=== PATIENT | male | born 1970 | race Caucasian/White ===

== ENCOUNTER → 2017-08-26 13:30 | Outpatient (REF) | payer MEDICARE, OTHER, SELFPAY ==
[2017-08-26 18:39] LABS: Basophils % 0.2 % (0.1-2.0); Eosinophils # 0.2 K/mm3 (0.0-0.4); Hematocrit 39.5 % (42.0-52.0); Hemoglobin 13.4 g/dL (14.1-18.0); Lymphocytes # 0.8 K/mm3 (0.7-4.5); Lymphocytes % 15.8 K/mm3 (10-50); Mean Corpuscular HGB Conc 33.9 g/dL (31.8-35.4); Mean Corpuscular Hemoglobin 30.7 pg (27.0-31.2); Mean Corpuscular Volume 90.5 fl (80-94); Mean Platelet Volume 9.6 fl (7.4-10.4); Monocytes # 0.3 K/mm3 (0.1-1.0); Monocytes % 6.3 % (1.7-9.3); Neutrophils # 3.9 K/mm3 (1.8-7.8); Neutrophils % 74.7 % (37.0-80.0); Platelet Count 171 K/mm3 (142-424); Red Blood Count 4.37 M/mm3 (4.60-6.20); Red Cell Distribution Width 13.7 % (11.5-17.5); White Blood Count 5.3 K/mm3 (4.8-10.8)
[2017-08-26 18:48] LABS: Alanine Aminotransferase 46 U/L (12-78); Albumin Level 3.9 gm/dL (3.4-5.0); Albumin/Globulin Ratio 1.2 (1.1-1.8); Alkaline Phosphatase 216 U/L (46-116); Anion Gap 12.7 mEq/L (5-15); Bilirubin,Total 0.2 mg/dL (0.2-1.0); Blood Urea Nitrogen 20 mg/dL (7-18); Calcium 8.8 mg/dL (8.5-10.1); Carbon Dioxide 28 mmol/L (21.0-32.0); Chloride 104 mmol/L (98-107); Creatinine,Serum 1.29 mg/dL (0.70-1.30); Estimated Glomerular Filt Rate 59 ml/min (>60); GFR (African American) 72 ML/MIN (>60); Globulin 3.2 gm/dl (1.3-3.2); Sodium 141 mmol/L (136-145); Total Protein,Serum 7.1 gm/dL (6.4-8.2)
[2017-08-26 19:00] LABS: Aspartate Amino Transferase 31 U/L (15-37); Potassium 3.7 mmoL/L (3.5-5.1)
[2017-08-26 19:07] LABS: Glucose 111 mg/dL (74-106)
[2017-08-28 15:46] LABS: Prolactin 25.7 ng/mL (4.0-15.2)
== END ==
LOC: LAB 13:30
PROVIDERS: Visit Provider Physician Assistant
DX: B02.9 Zoster without complications (principal); N64.3 Galactorrhea not associated with childbirth
CPT/HCPCS: 80053; 84146; 85025

== ENCOUNTER → 2017-08-28 12:40 | Outpatient (POV) | payer MEDICARE, OTHER, SELFPAY | PROVIDERS: Family Provider Emergency Medicine; PCP Emergency Medicine | DX: Z00.00 Encounter for general adult medical examination without abnormal findings (principal) ==

== ENCOUNTER → 2017-09-12 12:55 | Outpatient (CLI) | payer MEDICARE, OTHER, SELFPAY ==
--- NOTE | 2017-09-12 12:58 | MR_ITS ---
MR head/brain wo con HISTORY: The lack diarrhea, pituitary dysfunction, headache ITS.REASON: r/o pituitary adenoma ORDERING PHYSICIAN: Lauren Miller PATIENT AGE: 47 years No comparison available TECHNIQUE: Standard multiplanar multiecho sequences are performed without contrast. FINDINGS: No midline shift, mass effect, intracranial hemorrhage, or hydrocephalus. No evidence of acute infarction. There is normal grissom-white matter differentiation. The cerebellopontine angles, cerebellum, and brainstem are unremarkable. No obvious pituitary mass. Small microadenomas may not be visualized without contrast. No cerebellar tonsillar ectopia. The craniocervical junction has an unremarkable appearance. No mastoid effusion or sinus air-fluid level. Artifact is present in right ocular prosthesis. IMPRESSION: 1. Negative MRI of the brain without contrast. 2. No obvious pituitary mass. Small microadenomas may not be seen without contrast administration.
--- NOTE | 2017-09-12 14:05 | US_ITS ---
US breast LT complete No pertinent comparisons INDICATION: Left-sided nipple discharge ORDERING PHYSICIAN: Lauren Miller PATIENT AGE: 47 years TECHNIQUE: Standard images FINDINGS: No mass. No solid or cystic lesions. No obvious gynecomastia IMPRESSION: Negative left breast ultrasound BI-RADS Category: 1 Negative As clinically warranted (A letter has been sent to the patient regarding results of the study.)
== END ==
PROVIDERS: Family Provider Emergency Medicine; PCP Emergency Medicine; Visit Provider Nurse Practitioner Family
DX: N64.3 Galactorrhea not associated with childbirth (principal); E22.9 Hyperfunction of pituitary gland, unspecified; N64.52 Nipple discharge
CPT/HCPCS: 70551; 76641

== ENCOUNTER → 2018-05-12 08:43 | Outpatient (CLI) | payer MEDICARE, OTHER, SELFPAY ==
--- NOTE | 2018-05-12 08:45 | CT_ITS ---
CT sinus wo con CLINICAL INDICATION: Maxillary sinusitis ITS.REASON: Sinusitis ORDERING PHYSICIAN: Nick Canchola MD PATIENT AGE: 48 years COMPARISON: None TECHNIQUE:Axial images obtained with sagittal and coronal reformats. All CT scans at the facility use one or more dose reduction, viz: automated exposure control, ma/kV adjustment per patient size (including targeted exams where dose is matched to indication, i.e. head), or iterative reconstruction technique. FINDINGS: Bones: Unremarkable. No fracture, lytic, or blastic changes evident Extracranial soft tissues: Unremarkable. The turbinates appear atrophic. Sinuses: Unremarkable. No air-fluid levels or significant mucosal thickening Orbits: Unremarkable Other: There is mild rightward nasal septal deviation. There is a right ocular prosthesis. IMPRESSION: Negative CT of the sinuses Minimal rightward nasal septal deviation
== END ==
PROVIDERS: PCP Emergency Medicine; Visit Provider Otolaryngology
DX: J32.0 Chronic maxillary sinusitis (principal)
CPT/HCPCS: 70486

== ENCOUNTER → 2018-07-07 07:56 | Outpatient (CLI) | payer MEDICARE, OTHER, SELFPAY ==
[2018-07-07 08:10] LABS: Basophils % 0.3 % (0.1-2.0); Eosinophils # 0.3 K/mm3 (0.0-0.4); Eosinophils % 5.1 % (0.1-12.0); Hematocrit 39.1 % (42.0-52.0); Hemoglobin 13.2 g/dL (14.1-18.0); Lymphocytes # 1.3 K/mm3 (0.7-4.5); Lymphocytes % 22.5 % (10-50); Mean Corpuscular HGB Conc 33.7 g/dL (31.8-35.4); Mean Corpuscular Hemoglobin 29.3 pg (27.0-31.2); Mean Platelet Volume 7.6 fl (7.4-10.4); Monocytes # 0.3 K/mm3 (0.1-1.0); Monocytes % 5.8 % (1.7-9.3); Neutrophils # 3.7 K/mm3 (1.8-7.8); Neutrophils % 66.3 % (37.0-80.0); Platelet Count 184 K/mm3 (142-424); Red Cell Distribution Width 14.1 % (11.5-17.5); White Blood Count 5.6 K/mm3 (4.8-10.8)
[2018-07-07 09:02] LABS: Erythrocyte Sedimentation Rate 37 mm/hr (0-15)
[2018-07-07 09:22] LABS: Alanine Aminotransferase 51 U/L (12-78); Albumin Level 3.7 gm/dL (3.4-5.0); Albumin/Globulin Ratio 1.2 (1.1-1.8); Alkaline Phosphatase 182 U/L (46-116); Anion Gap 12.8 mEq/L (5-15); Aspartate Amino Transferase 20 U/L (15-37); Bilirubin,Total 0.2 mg/dL (0.2-1.0); Blood Urea Nitrogen 17 mg/dL (7-18); Calcium 9.1 mg/dL (8.5-10.1); Carbon Dioxide 29 mmol/L (21.0-32.0); Chloride 105 mmol/L (98-107); Creatinine,Serum 1.26 mg/dL (0.70-1.30); Estimated Glomerular Filt Rate 61 ml/min (>60); GFR (African American) 74 ML/MIN (>60); Globulin 3.1 gm/dl (1.3-3.2); Glucose 101 mg/dL (74-106); Potassium 4.8 mmoL/L (3.5-5.1); Sodium 142 mmol/L (136-145); Total Protein,Serum 6.8 gm/dL (6.4-8.2)
== END ==
PROVIDERS: Visit Provider Emergency Medicine
DX: R11.10 Vomiting, unspecified (principal); R19.7 Diarrhea, unspecified
CPT/HCPCS: 36415; 80053; 85025; 85651

== ENCOUNTER → 2019-03-04 16:28 | Outpatient (CLI) | payer MEDICARE, OTHER, SELFPAY ==
--- NOTE | 2019-03-04 16:32 | XR_ITS ---
PROCEDURE: XR HAND RT MIN 3V CLINICAL INDICATION: mass COMPARISON: No exams were available for comparison FINDINGS: No fracture or dislocation. No lytic or blastic change. There is normal mineralization. Joint spaces are normal except there is some narrowing of the distal radial ulnar joint with small ulnar spur. Other findings:There is no cortical destruction or periosteal reaction. There is no radiopaque soft tissue foreign body. IMPRESSION: No acute process. 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 Dictated by: Jimmie Romero 03/04/2019 16:48 Electronically signed by Jimmie Romero in [facility] 03/04/2019 16:48
== END ==
PROVIDERS: PCP Emergency Medicine; Visit Provider Nurse Practitioner Family
DX: L98.9 Disorder of the skin and subcutaneous tissue, unspecified (principal)
CPT/HCPCS: 73130

== ENCOUNTER → 2019-04-16 10:32 | Outpatient (CLI) | payer MEDICARE, OTHER, SELFPAY ==
--- NOTE | 2019-04-16 10:35 | XR_ITS ---
PROCEDURE: XR HUMERUS RT CLINICAL INDICATION: Humerus FU Follow-up fracture/ORIF COMPARISON: HUMR HUMERUS-RT from 06/20/2016 H[facility] HUMERUS-RT from 08/01/2016 [facility] HUMERUS-RT from 10/18/2016 [facility] HUMERUS-RT from 04/19/2017 FINDINGS: There is a bone plate at the mid shaft of the humerus stabilizing an old humeral fracture the with abundant callus formation. There is good alignment. IMPRESSION: Healed midshaft humeral fracture status post ORIF Dictated by: Gio Muñiz MD 04/16/2019 15:45 Electronically signed by Gio Muñiz MD in [facility] 04/16/2019 15:45
== END ==
PROVIDERS: PCP Emergency Medicine; Visit Provider Orthopaedic Surgery
DX: S42.301A Unspecified fracture of shaft of humerus, right arm, initial encounter for closed fracture (principal)
CPT/HCPCS: 73060

== ENCOUNTER → 2019-06-10 06:56 | Outpatient (CLI) | payer MEDICARE, OTHER, SELFPAY ==
--- NOTE | 2019-06-10 06:56 | CA_ITS ---
APPROVED REPORT EXAM: Comprehensive 2D, Doppler, and color-flow Echocardiogram Cost Recorder: Radha Cabrales RT(R) Ht: 6 ft 0 in Wt: 218lbs BSA: 2.21 BP: 124/82 mmHg Indications: CP, SOA, Abn EKG, HTN, WORTHY 2D Dimensions LVOT 2.00 cm (M/F) 1.5-2.5 M-Mode Dimensions RVDd 1.91 cm (0.9-2.6) LVDd 4.80 cm (3.5-5.7) LVDs 3.35 cm (3.5-5.7) IVSd 1.22 cm (0.6-1.1) PWd 0.80 cm (0.6-1.1) EF (Teich) 57.40% FS 30.20% EDV (Teich) 107.50 mL ESV (Teich) 45.80 mL LV Diastology E/A Ratio 0.79 Mitral Valve MV A Velocity 59.00 (40-130 cm/s) Left Ventricle Left atrium is mildly enlarged, left ventricle is normal size, mild concentric left ventricular hypertrophy, visually estimated ejection fraction 55% with no regional wall motion abnormality, grade 1 diastolic dysfunction seen without tissue Doppler evidence of raise left atrial pressure. Right Ventricle Right atrium and right ventricular normal size and contractility. Aortic Valve Aortic valve is minimally thickened and fibrosed, there is no aortic stenosis or aortic insufficiency. Mitral Valve Mitral valve is grossly normal, there is mild mitral regurgitation. Tricuspid Valve Tricuspid valve is grossly normal, there is mild tricuspid regurgitation. Tricuspid regurgitation jet velocity is inadequate for calculation of the right ventricular systolic pressure. Pulmonic Valve Pulmonic valve is poorly visualized. Great Vessels Aortic root is normal size. Pericardium No significant pericardial effusion noted. Conclusion 1. Mildly enlarged left atrium, normal left ventricular size, mild concentric left ventricular hypertrophy. Visually estimated ejection fraction 55% with no regional wall motion abnormality, grade 1 diastolic dysfunction seen without tissue Doppler evidence of raise left atrial pressure. 2. Mild mitral and tricuspid regurgitation. 3. No significant pericardial effusion noted. Electronically signed by : Manjinder العلي, 06/11/2019 13:02:04
--- NOTE | 2019-06-10 06:58 | CA_ITS ---
APPROVED REPORT Exam: Exercise Treadmill Technologist: Ann Marie Alfred Ht: 5 ft 8 in Wt: 200 lbs BSA: 2.04 m2 HR: 85 bpm BP: 146/96 mmHg Indications: Chest pain, Shortness of Air Medical History Medications: Omeprazole,,,,, Blood pressure,,,,, Stress Test Details Test: Torsten HR Resting HR: 90 bpm Max Heart Rate (APMHR): 170 bpm Max HR Achieved: 143 bpm Target HR (85% APMHR): 144 bpm % of APMHR: 84 Recovery HR: 104 bpm BP Resting BP: 146.0/96.0 mmHg Max BP: 176.0/98.0 mmHg Recovery BP: 115.0/94.0 mmHg ECG Clinical Exercise duration: 09:00 min Highest Stage Achieved: Exercise capacity: 10.1 METs Stress ECG Conclusion Resting ECG: Sinus rhythm, right bundle branch block Torsten Protocol completed. Patient exercised 9:00. Test stopped due to shortness of breath. Symptoms: Shortness of breath at peak exercise. Resolved in recovery. No chest pain. Arrhythmias/Ectopy: No PVC. No PAC noted. ST-T Changes: Less than 1.[address] depression noted(1.6 mm) ST depression noted. Conclusion: GXT only. Reached 84% of target heart rate at 9:00 minutes. Good exercise tolerance. Hypertensive response. Test Summary REST . . . . . . . Sitting REST 15:37 0.0 0.0 90 . 146/ 96 . . Stage 1 01:00 10.0 1.7 107 . . . . Stage 1 02:00 10.0 1.7 111 . . . . Stage 1 03:00 10.0 1.7 112 . 150/ 88 . . Stage 2 01:00 12.0 2.5 118 . . . . Stage 2 02:00 12.0 2.5 122 . . . . Stage 2 03:00 12.0 2.5 124 . 162/ 90 . . Stage 3 01:00 14.0 3.4 131 . . . . Stage 3 02:00 14.0 3.4 137 . . . . Stage 3 03:00 14.0 3.4 142 . . . Stop exercise at 09:00 RECOVERY 01:00 0.0 0.0 136 . 176/ 98 . . RECOVERY 02:00 0.0 0.0 117 . 176/ 98 . . RECOVERY 03:00 0.0 0.0 115 . 169/ 98 . . RECOVERY 04:00 0.0 0.0 108 . 153/ 97 . . RECOVERY 05:00 0.0 0.0 104 . 153/ 97 . . RECOVERY 06:00 0.0 0.0 103 . 153/ 97 . . RECOVERY 07:00 0.0 0.0 103 . 153/ 97 . . RECOVERY 07:52 0.0 0.0 105 . 115/ 94 . . Electronically signed by : Manjinder العلي, 06/11/2019 15:22:00
== END ==
PROVIDERS: PCP Emergency Medicine; Visit Provider Urology
DX: I10 Essential (primary) hypertension (principal); R06.00 Dyspnea, unspecified; R07.9 Chest pain, unspecified; R94.31 Abnormal electrocardiogram [ECG] [EKG]
CPT/HCPCS: 93017; 93306

== ENCOUNTER → 2019-12-30 08:27 | Outpatient (CLI) | payer MEDICARE, OTHER, SELFPAY ==
--- NOTE | 2019-12-30 08:31 | US_ITS ---
PROCEDURE: US ABDOMEN LIMITED CLINICAL INDICATION: RUQ PAIN Cholecystectomy about 7 years ago. COMPARISON: No exams were available for comparison FINDINGS: PANCREAS: Unremarkable. No obvious mass or abnormal fluid collection. No ductal dilatation LIVER: No focal liver lesions demonstrated. Homogeneous echogenicity. No intrahepatic biliary ductal dilatation evident. There is appropriate direction of blood flow within a non dilated portal vein RIGHT KIDNEY: Unremarkable. Normal size and echogenicity. No hydronephrosis GALLBLADDER: No gallstones, gallbladder wall thickening, pericholecystic fluid, or biliary dilatation. The CBD measures 3.3 millimeter in diameter. IMPRESSION: Unremarkable limited abdominal ultrasound as detailed above disc Dictated by: Cristopher Mayo 12/30/2019 17:49 Electronically signed by Cristopher Mayo in [place] 12/30/2019 17:49
== END ==
PROVIDERS: PCP Emergency Medicine; Visit Provider Internal Medicine
DX: R10.11 Right upper quadrant pain (principal)
CPT/HCPCS: 76705

== ENCOUNTER → 2020-02-05 14:53 | Outpatient (CLI) | payer MEDICARE, OTHER, SELFPAY ==
--- NOTE | 2020-02-05 14:57 | XR_ITS ---
PROCEDURE: XR TOE LT MIN 2V CLINICAL INDICATION: L 2ND TOE INJURY Posttraumatic pain COMPARISON: No exams were available for comparison FINDINGS: No obvious fracture or dislocation. There is some deformity of the distal aspect of the middle phalanx of the 2nd toe with the distal surface somewhat oblique but no definite fracture is apparent. Soft tissue swelling is present involving the 2nd toe. IMPRESSION: Soft tissue swelling, no acute fracture Dictated by: Gio Muñiz MD 02/05/2020 15:18 Gio Muñiz MD in [place] 02/05/2020 15:18
== END ==
PROVIDERS: PCP Internal Medicine; Visit Provider Internal Medicine
DX: M79.675 Pain in left toe(s) (principal); S99.922A Unspecified injury of left foot, initial encounter
CPT/HCPCS: 73660

== ENCOUNTER → 2020-06-15 13:04 | Outpatient (POV) | payer MEDICARE, OTHER, SELFPAY | DX: Z00.00 Encounter for general adult medical examination without abnormal findings (principal) ==

== ENCOUNTER → 2020-12-08 08:06 | Outpatient (CLI) | payer MEDICARE, OTHER, SELFPAY | PROVIDERS: PCP Internal Medicine; Visit Provider Internal Medicine | DX: I49.9 Cardiac arrhythmia, unspecified (principal); R00.2 Palpitations | CPT/HCPCS: 93225; 93226; 93306 ==

== ENCOUNTER → 2021-06-26 12:35 | Outpatient (CLI) | payer MEDICARE, OTHER, SELFPAY ==
[2021-06-26 13:14] LABS: Basophils % 0.5 % (0.1-2.0); Eosinophils # 0.2 K/mm3 (0.0-0.4); Eosinophils % 3.7 % (0.1-12.0); Hematocrit 43.8 % (42.0-52.0); Hemoglobin 14.8 g/dL (14.1-18.0); Lymphocytes % 21.6 % (10-50); Mean Corpuscular HGB Conc 33.8 g/dL (31.8-35.4); Mean Corpuscular Hemoglobin 31.7 pg (27.0-31.2); Mean Corpuscular Volume 93.9 fl (80-94); Mean Platelet Volume 10.9 fl (7.4-10.4); Monocytes # 0.3 K/mm3 (0.1-1.0); Monocytes % 7.3 % (1.7-9.3); Neutrophils # 2.9 K/mm3 (1.8-7.8); Neutrophils % 66.9 % (37.0-80.0); Platelet Count 162 K/mm3 (142-424); Red Blood Count 4.67 M/mm3 (4.60-6.20); Red Cell Distribution Width 14.3 % (11.5-17.5); White Blood Count 4.4 K/mm3 (4.8-10.8)
[2021-06-26 14:05] LABS: Alanine Aminotransferase 26 U/L (12-78); Albumin Level 4.5 g/dl (3.5-5.0); Alkaline Phosphatase 120 U/L (38-126); Anion Gap 10.6 mEq/L (5-15); Aspartate Amino Transferase 36 U/L (17-59); Bilirubin,Total 0.5 mg/dl (0.2-1.3); Blood Urea Nitrogen 19 mg/dl (9-20); Calcium 9.6 mg/dl (8.4-10.2); Carbon Dioxide 27 mmol/L (22.0-30.0); Chloride 103 mmol/L (98-107); Cholesterol 184 mg/dl (140-200); Estimated Glomerular Filt Rate 70 ml/min (>60); GFR (African American) 85 ML/MIN (>60); Globulin 2.2 g/dL (1.3-3.2); Glucose 76 mg/dl (74-100); HDL Cholesterol 23 mg/dl (40-60); Potassium 4.6 mmoL/L (3.5-5.1); Sodium 136 mmol/L (136-145); Total Protein,Serum 6.7 g/dl (6.3-8.2)
[2021-06-26 14:08] LABS: Triglycerides 519 mg/dl (30-150)
[2021-06-26 14:16] LABS: Direct LDL Cholesterol 90.03 mg/dL (100-129)
[2021-06-26 14:35] LABS: Prostate Specific Ag Screen 0.5 ng/ml (0.0-4.0)
== END ==
PROVIDERS: Visit Provider Internal Medicine
DX: I10 Essential (primary) hypertension (principal); E78.5 Hyperlipidemia, unspecified; D69.6 Thrombocytopenia, unspecified; E66.8 Other obesity; N40.1 Benign prostatic hyperplasia with lower urinary tract symptoms; Z12.5 Encounter for screening for malignant neoplasm of prostate
CPT/HCPCS: 80053; 80061; 85025; G0103

== ENCOUNTER → 2021-09-08 10:53 | Outpatient (CLI) | payer MEDICARE, OTHER, SELFPAY ==
--- NOTE | 2021-09-08 10:59 | XR_ITS ---
FINAL REPORT CLINICAL HISTORY: LEFT KNEE PAIN FINDINGS: LEFT KNEE Three views were obtained. There is no acute fracture or dislocation. Mild degenerative changes are present. There is no joint effusion. No soft tissue abnormality is identified. IMPRESSION: No acute process. Reviewed, Interpreted and Dictated by David Ramirez III, MD Transcribed by Jessica Orosco Authenticated by David Ramirez III, MD on 09/08/2021 12:17:56 PM [facility]
== END ==
PROVIDERS: PCP Internal Medicine; Visit Provider Internal Medicine
DX: M25.562 Pain in left knee (principal)
CPT/HCPCS: 73562

== ENCOUNTER → 2021-12-25 11:49 | Outpatient (CLI) | payer MEDICARE, OTHER, SELFPAY ==
[2021-12-25 13:09] LABS: Basophils % 0.3 % (0.1-2.0); Eosinophils # 0.1 K/mm3 (0.0-0.4); Eosinophils % 1.9 % (0.1-12.0); Hematocrit 41.6 % (42.0-52.0); Hemoglobin 14.4 g/dL (14.1-18.0); Lymphocytes # 1.4 K/mm3 (0.7-4.5); Lymphocytes % 18.7 % (10-50); Mean Corpuscular HGB Conc 34.6 g/dL (31.8-35.4); Mean Corpuscular Volume 89.5 fl (80-94); Mean Platelet Volume 9.9 fl (7.4-10.4); Monocytes # 0.5 K/mm3 (0.1-1.0); Monocytes % 6.5 % (1.7-9.3); Neutrophils # 5.3 K/mm3 (1.8-7.8); Neutrophils % 72.5 % (37.0-80.0); Platelet Count 176 K/mm3 (142-424); Red Blood Count 4.65 M/mm3 (4.60-6.20); Red Cell Distribution Width 13.4 % (11.5-17.5); White Blood Count 7.3 K/mm3 (4.8-10.8)
[2021-12-25 13:35] LABS: Alanine Aminotransferase 18 U/L (12-78); Albumin Level 4.4 g/dl (3.5-5.0); Albumin/Globulin Ratio 1.7 (1.1-1.8); Alkaline Phosphatase 149 U/L (38-126); Anion Gap 12.8 mEq/L (5-15); Aspartate Amino Transferase 27 U/L (17-59); Bilirubin,Total 0.3 mg/dl (0.2-1.3); Blood Urea Nitrogen 30 mg/dl (9-20); Calcium 9.6 mg/dl (8.4-10.2); Carbon Dioxide 26 mmol/L (22.0-30.0); Chloride 105 mmol/L (98-107); Chol/HDL Ratio 7.4 (1-3.5); Cholesterol 184 mg/dl (140-200); Estimated Glomerular Filt Rate 58 ml/min (>60); GFR (African American) 70 ML/MIN (>60); Globulin 2.6 g/dL (1.3-3.2); Glucose 82 mg/dl (74-100); HDL Cholesterol 25 mg/dl (40-60); Potassium 3.8 mmoL/L (3.5-5.1); Sodium 140 mmol/L (136-145)
[2021-12-25 13:37] LABS: Triglycerides 424 mg/dl (30-150)
[2021-12-25 13:48] LABS: Direct LDL Cholesterol 81.02 mg/dL (100-129)
== END ==
PROVIDERS: PCP Internal Medicine; Visit Provider Internal Medicine
DX: I10 Essential (primary) hypertension (principal); D69.6 Thrombocytopenia, unspecified; E78.5 Hyperlipidemia, unspecified; K76.0 Fatty (change of) liver, not elsewhere classified; F41.9 Anxiety disorder, unspecified
CPT/HCPCS: 80053; 80061; 85025

== ENCOUNTER → 2022-02-07 19:23 | Outpatient (CLI) | payer MEDICARE, OTHER, SELFPAY ==
[2022-02-07 20:55] LABS: Alanine Aminotransferase 19 U/L (12-78); Albumin Level 4.5 g/dl (3.5-5.0); Albumin/Globulin Ratio 1.8 (1.1-1.8); Alkaline Phosphatase 154 U/L (38-126); Anion Gap 15.3 mEq/L (5-15); Aspartate Amino Transferase 25 U/L (17-59); Blood Urea Nitrogen 25 mg/dl (9-20); Calcium 9.5 mg/dl (8.4-10.2); Carbon Dioxide 25 mmol/L (22.0-30.0); Chloride 107 mmol/L (98-107); Chol/HDL Ratio 6.4 (1-3.5); Cholesterol 186 mg/dl (140-200); Estimated Glomerular Filt Rate 63 ml/min (>60); GFR (African American) 77 ML/MIN (>60); Globulin 2.5 g/dL (1.3-3.2); Glucose 63 mg/dl (74-100); HDL Cholesterol 29 mg/dl (40-60); Potassium 4.3 mmoL/L (3.5-5.1); Sodium 143 mmol/L (136-145); Triglycerides 394 mg/dl (30-150); VLDL Cholesterol 79 mg/dL (0-40)
[2022-02-07 20:56] LABS: Bilirubin,Total < 0.1 mg/dl (0.2-1.3)
[2022-02-09 09:10] LABS: Direct LDL Cholesterol 96 mg/dL (100-129)
== END ==
PROVIDERS: PCP Internal Medicine; Visit Provider Internal Medicine
DX: I10 Essential (primary) hypertension (principal); E78.5 Hyperlipidemia, unspecified; K76.0 Fatty (change of) liver, not elsewhere classified
CPT/HCPCS: 80053; 80061

== ENCOUNTER → 2022-04-23 07:21 | Outpatient (CLI) | payer MEDICARE, OTHER, SELFPAY ==
--- NOTE | 2022-04-23 07:21 | CT_ITS ---
FINAL REPORT TECHNIQUE: Thin section axial CT images of the facial bones and sinuses were obtained without contrast. Coronal reformatted images were also obtained.This study was performed with techniques to keep radiation doses as low as reasonably achievable, (ALARA). Individualized dose reduction techniques using automated exposure control or adjustment of mA and/or kV according to the patient''''s size were employed. CLINICAL HISTORY: chronic sinusitis COMPARISON: 05/12/2018 FINDINGS: Right phthsis bulbi is unchanged. There is mild mucosal thickening of the left sphenoid sinus. No fluid levels are identified. The ostiomeatal units have an unremarkable appearance. The nasal septum is in the midline. No fracture or acute bony abnormality is identified. IMPRESSION: No change in mild mucosal thickening of the left sphenoid sinus. Reviewed, Interpreted and Dictated by David Ramirez III, MD Transcribed by Apple Valerio Authenticated and . [facility]
--- NOTE | 2022-04-23 07:29 | XR_ITS ---
FINAL REPORT CLINICAL HISTORY: LT KNEE PAIN COMPARISON: 09/08/2021 FINDINGS: LEFT KNEE: Three views of the left knee were obtained. There is no acute fracture or dislocation. There are mild degenerative changes. There is no joint effusion. Soft tissues are unremarkable. IMPRESSION: No acute bony abnormality. Reviewed, Interpreted and Dictated by David Ramirez III, MD Transcribed by Apple Valerio Authenticated and [facility]
== END ==
PROVIDERS: PCP Internal Medicine; Visit Provider Otolaryngology
DX: M25.562 Pain in left knee; J32.8 Other chronic sinusitis
CPT/HCPCS: 70486; 73562

== ENCOUNTER → 2022-05-07 13:21 | Outpatient (CLI) | payer MEDICARE, OTHER, SELFPAY ==
[2022-05-07 14:09] LABS: Basophils % 0.3 % (0.1-2.0); Eosinophils # 0.2 K/mm3 (0.0-0.4); Eosinophils % 1.5 % (0.1-12.0); Hematocrit 38.4 % (42.0-52.0); Hemoglobin 12.5 g/dL (14.1-18.0); Lymphocytes # 1.1 K/mm3 (0.7-4.5); Lymphocytes % 10.7 % (10-50); Mean Corpuscular HGB Conc 32.7 g/dL (31.8-35.4); Mean Corpuscular Hemoglobin 31.1 pg (27.0-31.2); Mean Corpuscular Volume 95.3 fl (80-94); Mean Platelet Volume 9.7 fl (7.4-10.4); Monocytes # 0.6 K/mm3 (0.1-1.0); Monocytes % 6.6 % (1.7-9.3); Neutrophils # 7.9 K/mm3 (1.8-7.8); Neutrophils % 80.9 % (37.0-80.0); Platelet Count 181 K/mm3 (142-424); Red Blood Count 4.03 M/mm3 (4.60-6.20); Red Cell Distribution Width 14.2 % (11.5-17.5); White Blood Count 9.8 K/mm3 (4.8-10.8)
[2022-05-07 14:41] LABS: Erythrocyte Sedimentation Rate 21 mm/hr (0-20)
[2022-05-07 15:15] LABS: Blood Urea Nitrogen 23 mg/dl (9-20); Calcium 9.3 mg/dl (8.4-10.2); Carbon Dioxide 26 mmol/L (22.0-30.0); Chloride 107 mmol/L (98-107); Estimated Glomerular Filt Rate 53 ml/min (>60); GFR (African American) 64 ML/MIN (>60); Glucose 87 mg/dl (74-100); Sodium 140 mmol/L (136-145); Uric Acid 7.9 mg/dl (3.5-8.5)
== END ==
PROVIDERS: PCP Internal Medicine; Visit Provider Internal Medicine
DX: I10 Essential (primary) hypertension (principal)
CPT/HCPCS: 80048; 84550; 85025; 85651

== ENCOUNTER → 2022-06-26 17:03 | Outpatient (CLI) | payer MEDICARE, OTHER, SELFPAY ==
[2022-06-26 19:03] LABS: Alanine Aminotransferase 28 U/L (12-78); Albumin Level 4.8 g/dl (3.5-5.0); Alkaline Phosphatase 91 U/L (38-126); Amylase 54 U/L (30-110); Anion Gap 12.1 mEq/L (5-15); Aspartate Amino Transferase 31 U/L (17-59); Bilirubin,Total 0.5 mg/dl (0.2-1.3); Blood Urea Nitrogen 29 mg/dl (9-20); Calcium 9.3 mg/dl (8.4-10.2); Carbon Dioxide 29 mmol/L (22.0-30.0); Chloride 106 mmol/L (98-107); Chol/HDL Ratio 4.4 (1-3.5); Cholesterol 158 mg/dl (140-200); Estimated Glomerular Filt Rate 42 ml/min (>60); GFR (African American) 51 ML/MIN (>60); Globulin 2.4 g/dL (1.3-3.2); Glucose 74 mg/dl (74-100); HDL Cholesterol 36 mg/dl (40-60); Potassium 4.1 mmoL/L (3.5-5.1); Sodium 143 mmol/L (136-145); Total Protein,Serum 7.2 g/dl (6.3-8.2); Triglycerides 174 mg/dl (30-150); VLDL Cholesterol 35 mg/dL (0-40)
[2022-06-26 19:14] LABS: Direct LDL Cholesterol 91.42 mg/dL (100-129)
== END ==
PROVIDERS: PCP Internal Medicine; Visit Provider Internal Medicine
DX: R10.12 Left upper quadrant pain (principal); K76.0 Fatty (change of) liver, not elsewhere classified; I10 Essential (primary) hypertension; E78.5 Hyperlipidemia, unspecified
CPT/HCPCS: 80053; 80061; 82150; 84550

== ENCOUNTER → 2022-07-02 09:27 | Outpatient (CLI) | payer MEDICARE, OTHER, SELFPAY ==
--- NOTE | 2022-07-02 09:33 | FL_ITS ---
FINAL REPORT CLINICAL HISTORY: EPIGASTRIC PAIN, BURNING..2.42 fluoro time FINDINGS: UPPER GI EXAM HISTORY: Epigastric pain with heartburn. PROCEDURE: The patient ingested barium. Effervescent crystals were also administered. Spot and overhead films were obtained. FINDINGS: There is a prominent cricopharyngeal muscle. Penetration was seen without marianne aspiration. The esophagus is otherwise normal. There is no hiatal hernia. There is no gastroesophageal reflux. Peristalsis is normal. The rugal fold pattern of the stomach is normal. The duodenal bulb is normal. FLUOROSCOPY TIME: 2 minutes 42 seconds. 18 radiographs were obtained. IMPRESSION: Prominent cricopharyngeal muscle. Penetration without aspiration. Otherwise, unremarkable exam. Films reviewed , interpreted and dictated by Dr. Ramirez. Transcribed by Tavo Parsons PA-C. Reviewed, Interpreted and Dictated by David Ramirez III, MD Transcribed by ALIX Salcedo Authenticated and [facility]
== END ==
PROVIDERS: PCP Internal Medicine; Visit Provider Internal Medicine
DX: R10.13 Epigastric pain (principal)
CPT/HCPCS: 74246

== ENCOUNTER → 2022-07-09 08:45 | Outpatient (CLI) | payer MEDICARE, OTHER, SELFPAY ==
[2022-07-10 14:45] LABS: H. pylori Breath Test Negative (Negative)
== END ==
PROVIDERS: PCP Internal Medicine; Visit Provider Internal Medicine
DX: R10.12 Left upper quadrant pain (principal)
CPT/HCPCS: 83013

== ENCOUNTER → 2022-07-25 12:18 | Outpatient (CLI) | payer MEDICARE, OTHER, SELFPAY ==
--- NOTE | 2022-07-25 12:23 | US_ITS ---
FINAL REPORT CLINICAL HISTORY: eLEVATED KIDNEY FUNCTION FINDINGS: Sonographic images were obtained of the bladder. On the filled views the bladder measures 6.6 x 6.8 x 7.6 cm yielding a bladder volume of 175.8 mL. On the postvoid views the bladder measures 4.5 x 1.8 x 3.5 cm yielding a bladder volume of 15 mL. Ureteral jets are visualized. No masses are seen. IMPRESSION: Normal appearance of the bladder with a small postvoid residual. Reviewed, Interpreted and Dictated by David Ramirez III, MD Transcribed by Peri Shanks Authenticated and [facility]
--- NOTE | 2022-07-25 12:23 | US_ITS ---
FINAL REPORT TECHNIQUE: Ultrasound images of the kidneys were obtained. CLINICAL HISTORY: .elev renal function FINDINGS: US RETROPERITONEAL The right kidney measures 10.4 cm in length. There is a 1.2 cm cyst. There is no hydronephrosis. The left kidney measures9 cm in length. There is no hydronephrosis. The spleen measures 10.6 cm and is normal. IMPRESSION: 1.2 cm right renal cyst. Reviewed, Interpreted and Dictated by David Ramirez III, MD Transcribed by Peri Shanks Authenticated and [facility]
== END ==
PROVIDERS: PCP Internal Medicine; Visit Provider Internal Medicine
DX: R94.4 Abnormal results of kidney function studies (principal)
CPT/HCPCS: 76770; 76857

== ENCOUNTER → 2022-12-18 12:08 | Outpatient (CLI) | payer MEDICARE, OTHER, SELFPAY ==
[2022-12-18 13:15] LABS: Basophils % 0.3 % (0.1-2.0); Eosinophils # 0.2 K/mm3 (0.0-0.4); Eosinophils % 5.4 % (0.1-12.0); Hematocrit 40.8 % (42.0-52.0); Hemoglobin 13.5 g/dL (14.1-18.0); Lymphocytes # 0.9 K/mm3 (0.7-4.5); Lymphocytes % 19.4 % (10-50); Mean Corpuscular Hemoglobin 29.4 pg (27.0-31.2); Mean Corpuscular Volume 89.4 fl (80-94); Mean Platelet Volume 9.9 fl (7.4-10.4); Monocytes # 0.5 K/mm3 (0.1-1.0); Monocytes % 11.4 % (1.7-9.3); Neutrophils # 2.8 K/mm3 (1.8-7.8); Neutrophils % 63.6 % (37.0-80.0); Platelet Count 232 K/mm3 (142-424); Red Blood Count 4.57 M/mm3 (4.60-6.20); White Blood Count 4.5 K/mm3 (4.8-10.8)
[2022-12-18 13:47] LABS: Alanine Aminotransferase 26 U/L (12-78); Albumin Level 4.5 g/dl (3.5-5.0); Alkaline Phosphatase 74 U/L (38-126); Anion Gap 12.4 mEq/L (5-15); Aspartate Amino Transferase 36 U/L (17-59); Bilirubin,Total 0.3 mg/dl (0.2-1.3); Blood Urea Nitrogen 41 mg/dl (9-20); Calcium 9.4 mg/dl (8.4-10.2); Carbon Dioxide 31 mmol/L (22.0-30.0); Chloride 102 mmol/L (98-107); Chol/HDL Ratio 6.2 (1-3.5); Cholesterol 206 mg/dl (140-200); Estimated Glomerular Filt Rate 33 ml/min (>60); GFR (African American) 40 ML/MIN (>60); Globulin 2.2 g/dL (1.3-3.2); Glucose 83 mg/dl (74-100); HDL Cholesterol 33 mg/dl (40-60); Potassium 4.4 mmoL/L (3.5-5.1); Sodium 141 mmol/L (136-145); Total Protein,Serum 6.7 g/dl (6.3-8.2); Triglycerides 150 mg/dl (30-150); Uric Acid 8.6 mg/dl (3.5-8.5); VLDL Cholesterol 30 mg/dL (0-40)
[2022-12-18 13:58] LABS: Direct LDL Cholesterol 141.28 mg/dL (100-129)
[2022-12-18 14:14] LABS: Prostate Specific Ag Screen 0.7 ng/ml (0.0-4.0)
== END ==
PROVIDERS: PCP Internal Medicine; Visit Provider Internal Medicine
DX: I10 Essential (primary) hypertension (principal); E78.5 Hyperlipidemia, unspecified; K76.0 Fatty (change of) liver, not elsewhere classified; M10.9 Gout, unspecified; Z12.5 Encounter for screening for malignant neoplasm of prostate
CPT/HCPCS: 80053; 80061; 84550; 85025; G0103

== ENCOUNTER → 2023-01-18 10:09 | Outpatient (CLI) | payer MEDICARE, OTHER, SELFPAY ==
--- NOTE | 2023-01-18 10:30 | XR_ITS ---
FINAL REPORT CLINICAL HISTORY: Left knee pain COMPARISON: 04/23/2022 FINDINGS: LEFT KNEE: Three views of the left knee were obtained. There is no acute fracture or dislocation. There is mild degenerative change. There is mild medial compartment narrowing. Visualized joint spaces are normally aligned. There is no joint effusion. Soft tissues are unremarkable. IMPRESSION: Degenerative change without acute bony abnormality. Reviewed, Interpreted and Dictated by David Ramirez III, MD Transcribed by Itzel Perez Authenticated and [facility]
== END ==
PROVIDERS: PCP Internal Medicine; Visit Provider Orthopaedic Surgery
DX: M25.561 Pain in right knee (principal)
CPT/HCPCS: 73562

== ENCOUNTER → 2023-03-14 10:09 | Outpatient (POV) | payer MEDICARE, OTHER, SELFPAY | PROVIDERS: Visit Provider Specialist/Technologist | DX: Z00.00 Encounter for general adult medical examination without abnormal findings (principal) ==

== ENCOUNTER → 2023-03-22 12:38 | Outpatient (CLI) | payer MEDICARE, OTHER, SELFPAY | PROVIDERS: PCP Internal Medicine; Visit Provider Internal Medicine | DX: H01.003 Unspecified blepharitis right eye, unspecified eyelid (principal); J30.9 Allergic rhinitis, unspecified | CPT/HCPCS: 87070; 87205 ==

== ENCOUNTER → 2023-04-03 08:24 | Outpatient (CLI) | payer MEDICARE, OTHER, SELFPAY ==
[2023-04-03 08:44] LABS: Microscopic, Urine URINE MICROSCOPIC (MICROSCOPIC)
[2023-04-03 09:21] LABS: Hematocrit 40.2 % (42.0-52.0); Hemoglobin 13.8 g/dL (14.1-18.0); Mean Corpuscular HGB Conc 34.3 g/dL (31.8-35.4); Mean Corpuscular Hemoglobin 31.4 pg (27.0-31.2); Mean Corpuscular Volume 91.5 fl (80-94); Platelet Count 164 K/mm3 (142-424); Red Blood Count 4.39 M/mm3 (4.60-6.20); Red Cell Distribution Width 13.9 % (11.5-17.5); White Blood Count 6.2 K/mm3 (4.8-10.8)
[2023-04-03 10:17] LABS: Albumin Level 4.3 g/dl (3.5-5.0); Anion Gap 10.3 mEq/L (5-15); Blood Urea Nitrogen 24 mg/dl (9-20); Calcium 9.3 mg/dl (8.4-10.2); Carbon Dioxide 26 mmol/L (22.0-30.0); Chloride 107 mmol/L (98-107); Estimated Glomerular Filt Rate 49 ml/min (>60); GFR (African American) 59 ML/MIN (>60); Glucose 87 mg/dl (74-100); Phosphorous 2.5 mg/dl (2.5-4.5); Potassium 4.3 mmoL/L (3.5-5.1); Sodium 139 mmol/L (136-145)
[2023-04-03 10:29] LABS: Intact Parathyroid Hormone 68.3 pg/mL (7.5-53.5)
[2023-04-03 10:35] LABS: 25-OH Vitamin D, Total 36.2 ng/mL (30-100)
[2023-04-03 11:30] LABS: Appearance,Urine CLEAR (Clear); Bilirubin,Urine Negative (Negative); Blood, Urine Negative (Negative); Color,Urine YELLOW (Yellow); Glucose,Urine (UA) Negative (Negative); Ketones,Urine Negative (Negative); Leukocyte Esterase,Urine Negative (Negative); Nitrate,Urine Negative (Negative); PH,Urine 6.5 (5.0-8.5); Protein,Urine Negative (Negative); Specific Gravity, Urine 1.025 (1.005-1.030); Urobilinogen,Urine 0.2 EU/dl (0.2)
[2023-04-03 12:05] LABS: Bacteria,Urine Trace /lpf; Squamous Epithelial Cell,Urine Occasional #/hpf (0-5); WBC,Urine Occasional #/hpf (0-3)
== END ==
LOC: LAB 08:26
PROVIDERS: PCP Internal Medicine; Visit Provider Internal Medicine Nephrology
DX: N17.9 Acute kidney failure, unspecified (principal); E55.9 Vitamin D deficiency, unspecified
CPT/HCPCS: 36415; 80069; 81001; 82306; 83970; 84155; 85014; 85018; 85048; 85049

== ENCOUNTER → 2023-04-04 13:42 | Outpatient (POV) | payer MEDICARE, OTHER, SELFPAY | PROVIDERS: Visit Provider Internal Medicine Nephrology | DX: Z00.00 Encounter for general adult medical examination without abnormal findings (principal) ==

== ENCOUNTER 2023-06-26 12:20 | Outpatient (CLI) | payer MEDICARE, OTHER, SELFPAY ==
[2023-06-26 13:21] LABS: Chloride 107 mmol/L (98-107); Potassium 4.4 mmoL/L (3.5-5.1); Sodium 141 mmol/L (136-145)
[2023-06-26 13:23] LABS: Blood Urea Nitrogen 22 mg/dl (9-20); Estimated Glomerular Filt Rate 49 ml/min (>60); GFR (African American) 59 ML/MIN (>60)
[2023-06-26 13:24] LABS: Alanine Aminotransferase 28 U/L (12-78); Albumin Level 4.1 g/dl (3.5-5.0); Albumin/Globulin Ratio 1.9 (1.1-1.8); Alkaline Phosphatase 72 U/L (38-126); Anion Gap 9.4 mEq/L (5-15); Aspartate Amino Transferase 37 U/L (17-59); Bilirubin,Total 0.5 mg/dl (0.2-1.3); Calcium 9.4 mg/dl (8.4-10.2); Carbon Dioxide 29 mmol/L (22.0-30.0); Chol/HDL Ratio 6.9 (1-3.5); Cholesterol 187 mg/dl (140-200); Globulin 2.2 g/dL (1.3-3.2); Glucose 75 mg/dl (74-100); HDL Cholesterol 27 mg/dl (40-60); Total Protein,Serum 6.3 g/dl (6.3-8.2); Triglycerides 169 mg/dl (30-150); VLDL Cholesterol 34 mg/dL (0-40)
[2023-06-26 13:36] LABS: Direct LDL Cholesterol 129.93 mg/dL (100-129)
[2023-06-26 14:06] LABS: Uric Acid 6.9 mg/dl (3.5-8.5)
[2023-06-27 08:24] LABS: HIV Screen 4th Generation wRfx Non Reactive (Non Reactive)
== END 2023-06-26 23:59 ==
LOC: LAB.DROPOF 12:21
PROVIDERS: PCP Internal Medicine; Visit Provider Internal Medicine
DX: I10 Essential (primary) hypertension (principal); H54.40 Blindness, one eye, unspecified eye; K76.0 Fatty (change of) liver, not elsewhere classified; E66.8 Other obesity; E78.5 Hyperlipidemia, unspecified; D69.6 Thrombocytopenia, unspecified; N19 Unspecified kidney failure; M10.9 Gout, unspecified; Z92.89 Personal history of other medical treatment; Z11.4 Encounter for screening for human immunodeficiency virus [HIV]
CPT/HCPCS: 80053; 80061; 84550; 86703; G0432

== ENCOUNTER 2023-07-08 09:46 | Outpatient (CLI) | payer MEDICARE, OTHER, SELFPAY ==
--- NOTE | 2023-07-08 09:54 | XR_ITS ---
FINAL REPORT CLINICAL HISTORY: FALL IN BATH TUB 07/05/23,CHEST PAIN FINDINGS: 2 views of the chest were obtained . The heart is normal in size. The mediastinum is within normal limits. The lungs are clear. There is no pneumothorax. Osseous structures are unremarkable. IMPRESSION: No acute cardiopulmonary process. Reviewed, Interpreted and Dictated by David Ramirez III, MD Transcribed by Apple Valerio Authenticated and [facility]
== END 2023-07-08 23:59 ==
LOC: RAD 09:48
PROVIDERS: PCP Internal Medicine; Visit Provider Internal Medicine
DX: R07.89 Other chest pain (principal); W18.2XXA Fall in (into) shower or empty bathtub, initial encounter
CPT/HCPCS: 71046

== ENCOUNTER 2023-07-26 10:03 | Outpatient (CLI) | payer MEDICARE, OTHER, SELFPAY ==
--- NOTE | 2023-07-26 10:06 | CA_ITS ---
FINAL REPORT TECHNIQUE: Ultrasound images of the deep venous system were obtained from the left groin to the calf veins. CLINICAL HISTORY: .Gout, Left calf spasm with pain FINDINGS: The deep venous system is normally compressible. Normal flow is identified. IMPRESSION: No evidence of left lower extremity DVT. Reviewed, Interpreted and Dictated by Calixto Limon MD Transcribed by Indiana Mccray Authenticated and [facility]
== END 2023-07-26 23:59 ==
LOC: RT 10:04
PROVIDERS: PCP Internal Medicine; Visit Provider Internal Medicine
DX: M79.605 Pain in left leg (principal); R60.0 Localized edema
CPT/HCPCS: 93971

== ENCOUNTER 2023-08-16 13:03 | Outpatient (CLI) | payer MEDICARE, OTHER, SELFPAY ==
[2023-08-16 14:46] LABS: Anion Gap 14.4 mEq/L (5-15); Blood Urea Nitrogen 34 mg/dl (9-20); Calcium 9.2 mg/dl (8.4-10.2); Carbon Dioxide 26 mmol/L (22.0-30.0); Chloride 106 mmol/L (98-107); Estimated Glomerular Filt Rate 53 ml/min (>60); GFR (African American) 64 ML/MIN (>60); Glucose 73 mg/dl (74-100); Potassium 4.4 mmoL/L (3.5-5.1); Sodium 142 mmol/L (136-145); Uric Acid 4.9 mg/dl (3.5-8.5)
== END 2023-08-16 23:59 ==
LOC: LAB.DROPOF 13:04
PROVIDERS: PCP Internal Medicine; Visit Provider Internal Medicine
DX: M10.9 Gout, unspecified (principal); N19 Unspecified kidney failure
CPT/HCPCS: 80048; 84550

== ENCOUNTER 2023-08-26 14:48 | Outpatient (RCR) | payer MEDICARE, OTHER, SELFPAY | END 2023-08-26 16:00 | disposition home or self-care (01) | LOC: PT 14:48 | PROVIDERS: Visit Provider Orthopaedic Surgery | DX: M17.12 Unilateral primary osteoarthritis, left knee (principal) | CPT/HCPCS: 97760 ==

== ENCOUNTER 2023-09-10 09:17 | Outpatient (CLI) | payer MEDICARE, OTHER, SELFPAY ==
[2023-09-10 09:40] LABS: Basophils % 0.7 % (0.1-2.0); Eosinophils # 0.2 K/mm3 (0.0-0.4); Eosinophils % 3.9 % (0.1-12.0); Hematocrit 39.9 % (42.0-52.0); Hemoglobin 12.9 g/dL (14.1-18.0); Lymphocytes % 20.7 % (10-50); Mean Corpuscular HGB Conc 32.4 g/dL (31.8-35.4); Mean Corpuscular Hemoglobin 30.3 pg (27.0-31.2); Mean Corpuscular Volume 93.3 fl (80-94); Mean Platelet Volume 8.9 fl (7.4-10.4); Monocytes # 0.4 K/mm3 (0.1-1.0); Monocytes % 8.6 % (1.7-9.3); Neutrophils # 3.1 K/mm3 (1.8-7.8); Neutrophils % 66.1 % (37.0-80.0); Platelet Count 204 K/mm3 (142-424); Red Blood Count 4.28 M/mm3 (4.60-6.20); Red Cell Distribution Width 14.1 % (11.5-17.5); White Blood Count 4.7 K/mm3 (4.8-10.8)
[2023-09-10 11:06] LABS: Alanine Aminotransferase 35 U/L (12-78); Albumin/Globulin Ratio 1.7 (1.1-1.8); Alkaline Phosphatase 67 U/L (38-126); Anion Gap 11.8 mEq/L (5-15); Aspartate Amino Transferase 38 U/L (17-59); Bilirubin,Total 0.5 mg/dl (0.2-1.3); Blood Urea Nitrogen 26 mg/dl (9-20); Calcium 9.5 mg/dl (8.4-10.2); Carbon Dioxide 27 mmol/L (22.0-30.0); Chloride 106 mmol/L (98-107); Creatine Kinase 81 U/L (55-170); Estimated Glomerular Filt Rate 49 ml/min (>60); GFR (African American) 59 ML/MIN (>60); Globulin 2.3 g/dL (1.3-3.2); Glucose 92 mg/dl (74-100); Potassium 3.8 mmoL/L (3.5-5.1); Sodium 141 mmol/L (136-145); Total Protein,Serum 6.3 g/dl (6.3-8.2)
[2023-09-10 11:35] LABS: Thyroid Stimulating Hormone 2.67 uIU/mL (0.465-4.68)
[2023-09-10 11:54] LABS: Vitamin B12 233 pg/mL (239-931)
== END 2023-09-10 23:59 | disposition home or self-care (01) ==
LOC: LAB 09:18
PROVIDERS: PCP Internal Medicine; Visit Provider Internal Medicine
DX: I10 Essential (primary) hypertension (principal); M62.81 Muscle weakness (generalized); M10.9 Gout, unspecified; N19 Unspecified kidney failure
CPT/HCPCS: 36415; 80053; 82550; 82607; 83735; 84443; 84550; 85025

== ENCOUNTER 2023-10-10 09:53 | Outpatient (CLI) | payer MEDICARE, OTHER, SELFPAY ==
[2023-10-10 10:02] LABS: Microscopic, Urine URINE MICROSCOPIC (MICROSCOPIC)
[2023-10-10 10:43] LABS: Appearance,Urine CLEAR (Clear); Bilirubin,Urine Negative (Negative); Blood, Urine Negative (Negative); Color,Urine YELLOW (Yellow); Glucose,Urine (UA) Negative (Negative); Ketones,Urine Negative (Negative); Leukocyte Esterase,Urine Negative (Negative); Nitrate,Urine Negative (Negative); Protein,Urine Negative (Negative)
[2023-10-10 10:44] LABS: Hematocrit 38.9 % (42.0-52.0); Hemoglobin 12.8 g/dL (14.1-18.0); Mean Corpuscular HGB Conc 32.8 g/dL (31.8-35.4); Mean Corpuscular Hemoglobin 29.9 pg (27.0-31.2); Mean Corpuscular Volume 91.1 fl (80-94); Platelet Count 214 K/mm3 (142-424); Red Blood Count 4.27 M/mm3 (4.60-6.20); Red Cell Distribution Width 14.6 % (11.5-17.5); White Blood Count 5.1 K/mm3 (4.8-10.8)
[2023-10-10 11:16] LABS: WBC,Urine Occasional #/hpf (0-3)
[2023-10-10 11:17] LABS: Bacteria,Urine 1+ /lpf; Squamous Epithelial Cell,Urine Occasional #/hpf (0-5)
[2023-10-10 11:23] LABS: Albumin Level 4.4 g/dl (3.5-5.0); Anion Gap 14.2 mEq/L (5-15); Blood Urea Nitrogen 30 mg/dl (9-20); Calcium 9.8 mg/dl (8.4-10.2); Carbon Dioxide 27 mmol/L (22.0-30.0); Chloride 103 mmol/L (98-107); Estimated Glomerular Filt Rate 42 ml/min (>60); GFR (African American) 51 ML/MIN (>60); Glucose 104 mg/dl (74-100); Phosphorous 3.1 mg/dl (2.5-4.5); Potassium 4.2 mmoL/L (3.5-5.1); Sodium 140 mmol/L (136-145)
[2023-10-10 11:27] LABS: Creatinine,Urine Random 181 mg/dL (Not Estab.)
[2023-10-10 11:36] LABS: Intact Parathyroid Hormone 41.9 pg/mL (7.5-53.5)
[2023-10-10 11:40] LABS: 25-OH Vitamin D, Total 32.8 ng/mL (30-100)
== END 2023-10-10 23:59 | disposition home or self-care (01) ==
LOC: LAB 09:57
PROVIDERS: PCP Internal Medicine; Visit Provider Internal Medicine Nephrology
DX: N18.9 Chronic kidney disease, unspecified (principal); N17.9 Acute kidney failure, unspecified
CPT/HCPCS: 36415; 80069; 81001; 82306; 82570; 83970; 84156; 85014; 85018; 85048; 85049

== ENCOUNTER 2023-10-14 14:42 | Outpatient (POV) | payer MEDICARE, OTHER, SELFPAY | END 2023-10-14 23:59 | disposition home or self-care (01) | LOC: SC 14:42 | PROVIDERS: Visit Provider Internal Medicine Nephrology | DX: Z00.00 Encounter for general adult medical examination without abnormal findings (principal) ==

== ENCOUNTER 2023-10-15 10:40 | Outpatient (RCR) | payer MEDICARE, OTHER, SELFPAY | END 2023-10-15 12:00 | disposition home or self-care (01) | LOC: PT 10:40 | PROVIDERS: Visit Provider Internal Medicine | DX: M25.572 Pain in left ankle and joints of left foot (principal) ==

== ENCOUNTER 2023-10-24 09:00 | Outpatient (RCR) | payer MEDICARE, OTHER, SELFPAY | END 2023-10-24 10:30 | disposition home or self-care (01) | LOC: PT 09:00 | PROVIDERS: Visit Provider Internal Medicine | DX: M25.562 Pain in left knee (principal) | CPT/HCPCS: 97010; 97110; 97163; 97530; 97760 ==

== ENCOUNTER 2023-12-25 15:24 | Outpatient (CLI) | payer MEDICARE, OTHER, SELFPAY ==
[2023-12-25 11:45] LABS: Basophils % 0.6 % (0.1-2.0); Eosinophils # 1.4 K/mm3 (0.0-0.4); Hematocrit 38.9 % (42.0-52.0); Hemoglobin 13.9 g/dL (14.1-18.0); Lymphocytes % 13.9 % (10-50); Mean Corpuscular HGB Conc 35.8 g/dL (31.8-35.4); Mean Corpuscular Hemoglobin 33.4 pg (27.0-31.2); Mean Corpuscular Volume 93.3 fl (80-94); Mean Platelet Volume 9.2 fl (7.4-10.4); Monocytes # 0.5 K/mm3 (0.1-1.0); Monocytes % 6.6 % (1.7-9.3); Neutrophils # 4.5 K/mm3 (1.8-7.8); Platelet Count 188 K/mm3 (142-424); Red Blood Count 4.17 M/mm3 (4.60-6.20); Red Cell Distribution Width 14.8 % (11.5-17.5); White Blood Count 7.4 K/mm3 (4.8-10.8)
[2023-12-25 12:38] LABS: Alanine Aminotransferase 30 U/L (12-78); Albumin Level 3.9 g/dl (3.5-5.0); Albumin/Globulin Ratio 1.5 (1.1-1.8); Alkaline Phosphatase 78 U/L (38-126); Anion Gap 10.4 mEq/L (5-15); Aspartate Amino Transferase 39 U/L (17-59); Bilirubin,Total 0.5 mg/dl (0.2-1.3); Blood Urea Nitrogen 27 mg/dl (9-20); Calcium 9.7 mg/dl (8.4-10.2); Carbon Dioxide 28 mmol/L (22.0-30.0); Chloride 107 mmol/L (98-107); Chol/HDL Ratio 6.4 (1-3.5); Cholesterol 219 mg/dl (140-200); Estimated Glomerular Filt Rate 49 ml/min (>60); GFR (African American) 59 ML/MIN (>60); Globulin 2.6 g/dL (1.3-3.2); Glucose 73 mg/dl (74-100); HDL Cholesterol 34 mg/dl (40-60); Potassium 4.4 mmoL/L (3.5-5.1); Sodium 141 mmol/L (136-145); Total Protein,Serum 6.5 g/dl (6.3-8.2); Triglycerides 178 mg/dl (30-150); Uric Acid 7.5 mg/dl (3.5-8.5); VLDL Cholesterol 36 mg/dL (0-40)
[2023-12-25 12:49] LABS: Direct LDL Cholesterol 156.83 mg/dL (100-129)
[2023-12-25 13:07] LABS: Prostate Specific Ag Screen 0.5 ng/ml (0.0-4.0)
== END 2023-12-25 23:59 | disposition home or self-care (01) ==
LOC: LAB.DROPOF 15:24
PROVIDERS: PCP Internal Medicine; Visit Provider Internal Medicine
DX: I10 Essential (primary) hypertension (principal); M10.9 Gout, unspecified; E78.5 Hyperlipidemia, unspecified; Z12.5 Encounter for screening for malignant neoplasm of prostate
CPT/HCPCS: 80053; 80061; 84550; 85025; G0103

== ENCOUNTER 2024-02-06 17:39 | Outpatient (CLI) | payer MEDICARE, OTHER, SELFPAY ==
--- NOTE | 2024-02-06 17:39 | MR_ITS ---
PROCEDURE INFORMATION: Exam: MR Left Lower Extremity Joint Without Contrast, Knee Exam date and time: 02/06/2024 5:58 PM Age: 54 years old Clinical indication: Pain; Knee; Left; Additional info: Lt knee pain TECHNIQUE: Imaging protocol: Magnetic resonance imaging of the left lower extremity joint without contrast. Exam focused on the knee. COMPARISON: CR XR KNEE LT 3V 01/18/2023 10:23 AM FINDINGS: Bones/joints: Moderate volume simple joint effusion. Partial distension of the semimembranosus/gastrocnemius bursa with a small Willingham's cyst measuring 3.7 x 1.5 x 1.1 cm. Severe osteoarthritic joint space narrowing in the medial compartment with extensive full-thickness osteochondral erosion and subarticular marrow edema, with mild articular flattening and medial joint line spurring. Full-thickness osteochondral erosion along the medial patellar facet with penetration of the subchondral bone plate near the median eminence and mild subarticular edema. Additional full-thickness osteochondral erosion in the medial trochlear articular surface with mild subarticular edema. Mild patellofemoral spurring. Lateral compartment articular surfaces are grossly well-maintained. Medial meniscus: Medial meniscus demonstrates extensive degenerative tear with degenerative extrusion of the body and anterior body horn junction along the medial joint line, demonstrating trizonal horizontal cleavage tear in the body and posterior body horn junction, and nondisplaced horizontal oblique tear in the middle and inner thirds of the posterior horn. Lateral meniscus: Lateral meniscus is intact. Anterior cruciate ligament: ACL intact. Pes anserinus intact, with slight T2 hyperintensity around the distal gracilis and semitendinosis tendons, reactive versus grade 1 injury. Posterior cruciate ligament: PCL intact. Medial capsule and supporting structures: MCL intact. Semimembranosus intact. Lateral capsule and supporting structures: Fibular collateral ligament intact. Biceps femoris and conjoined tendon intact. Iliotibial band intact. Popliteus tendon intact. Extensor mechanism of knee: Quadriceps tendon intact. Patellar tendon intact. Soft tissues: No acute soft tissue abnormalities. IMPRESSION: 1. Severe osteoarthritic changes and chondromalacia, greatest in the medial tibiofemoral compartment and along the medial patellar facet/medial trochlear ridge. 2. Degenerative medial meniscal tear detailed above. 3. Moderate volume joint effusion. 4. Probable reactive changes along the distal pes tendons near the medial compartment degenerative arthropathy, less likely grade 1 injury.
== END 2024-02-06 23:59 | disposition home or self-care (01) ==
LOC: RAD 17:39
PROVIDERS: PCP Internal Medicine; Visit Provider Physician Assistant
DX: M23.307 Other meniscus derangements, unspecified meniscus, left knee (principal)
CPT/HCPCS: 73721

== ENCOUNTER 2024-04-15 14:30 | Outpatient (CLI) | payer MEDICARE, OTHER, SELFPAY ==
[2024-04-15 15:55] LABS: Basophils % 0.6 % (0.1-2.0); Eosinophils # 0.1 K/mm3 (0.0-0.4); Eosinophils % 1.6 % (0.1-12.0); Hematocrit 39.2 % (42.0-52.0); Hemoglobin 13.7 g/dL (14.1-18.0); Lymphocytes # 1.1 K/mm3 (0.7-4.5); Mean Corpuscular HGB Conc 34.9 g/dL (31.8-35.4); Mean Corpuscular Hemoglobin 31.4 pg (27.0-31.2); Mean Corpuscular Volume 89.9 fl (80-94); Mean Platelet Volume 9.2 fl (7.4-10.4); Monocytes # 0.6 K/mm3 (0.1-1.0); Monocytes % 8.4 % (1.7-9.3); Neutrophils # 5.5 K/mm3 (1.8-7.8); Neutrophils % 74.5 % (37.0-80.0); Platelet Count 172 K/mm3 (142-424); Red Blood Count 4.37 M/mm3 (4.60-6.20); White Blood Count 7.4 K/mm3 (4.8-10.8)
[2024-04-15 16:24] LABS: Anion Gap 15.2 mEq/L (5-15); Blood Urea Nitrogen 30 mg/dl (9-20); Calcium 9.1 mg/dl (8.4-10.2); Carbon Dioxide 25 mmol/L (22.0-30.0); Chloride 105 mmol/L (98-107); Estimated Glomerular Filt Rate 45 ml/min (>60); GFR (African American) 55 ML/MIN (>60); Glucose 96 mg/dl (74-100); Potassium 4.2 mmoL/L (3.5-5.1); Sodium 141 mmol/L (136-145)
== END 2024-04-15 23:59 | disposition home or self-care (01) ==
LOC: LAB.DROPOF 04-16 13:37
PROVIDERS: PCP Internal Medicine; Visit Provider Internal Medicine
DX: D64.9 Anemia, unspecified (principal); N19 Unspecified kidney failure; R53.83 Other fatigue; E53.8 Deficiency of other specified B group vitamins
CPT/HCPCS: 80048; 85025

== ENCOUNTER 2024-04-20 13:54 | Outpatient (CLI) | payer MEDICARE, OTHER, SELFPAY ==
[2024-04-20 12:18] LABS: Microscopic, Urine URINE MICROSCOPIC (MICROSCOPIC)
[2024-04-20 12:33] LABS: Appearance,Urine CLEAR (Clear); Bilirubin,Urine Negative (Negative); Blood, Urine Negative (Negative); Color,Urine YELLOW (Yellow); Glucose,Urine (UA) Negative (Negative); Ketones,Urine Negative (Negative); Leukocyte Esterase,Urine Negative (Negative); Nitrate,Urine Negative (Negative); Protein,Urine Negative (Negative); Specific Gravity, Urine >= 1.030 (1.005-1.030); Urobilinogen,Urine 0.2 EU/dl (0.2)
[2024-04-20 12:47] LABS: Creatinine,Urine Random 248 mg/dL (Not Estab.)
[2024-04-20 12:49] LABS: Microalbumin/Creatinine Ratio 4.7
== END 2024-04-20 23:59 | disposition home or self-care (01) ==
LOC: LAB.DROPOF 13:54
PROVIDERS: PCP Internal Medicine; Visit Provider Internal Medicine
DX: N18.9 Chronic kidney disease, unspecified (principal); R53.83 Other fatigue; E53.8 Deficiency of other specified B group vitamins; D64.9 Anemia, unspecified
CPT/HCPCS: 81001; 82043; 82570

== ENCOUNTER 2024-06-15 08:52 | Outpatient (CLI) | payer MEDICARE, OTHER, SELFPAY ==
[2024-06-15 08:59] LABS: Microscopic, Urine URINE MICROSCOPIC (MICROSCOPIC)
[2024-06-15 09:12] LABS: Hematocrit 38.6 % (42.0-52.0); Hemoglobin 12.9 g/dL (14.1-18.0); Mean Corpuscular HGB Conc 33.4 g/dL (31.8-35.4); Mean Corpuscular Volume 89.8 fl (80-94); Platelet Count 182 K/mm3 (142-424); Red Cell Distribution Width 12.7 % (11.5-17.5); White Blood Count 5.5 K/mm3 (4.8-10.8)
[2024-06-15 09:15] LABS: Appearance,Urine CLEAR (Clear); Bilirubin,Urine Negative (Negative); Blood, Urine Negative (Negative); Color,Urine YELLOW (Yellow); Glucose,Urine (UA) Negative (Negative); Ketones,Urine Negative (Negative); Leukocyte Esterase,Urine Negative (Negative); Nitrate,Urine Negative (Negative); Protein,Urine Negative (Negative); Urobilinogen,Urine 0.2 EU/dl (0.2)
[2024-06-15 09:35] LABS: Albumin Level 4.3 g/dl (3.5-5.0); Blood Urea Nitrogen 30 mg/dl (9-20); Calcium 9.8 mg/dl (8.4-10.2); Carbon Dioxide 30 mmol/L (22.0-30.0); Chloride 106 mmol/L (98-107); Estimated Glomerular Filt Rate 45 ml/min (>60); GFR (African American) 55 ML/MIN (>60); Glucose 83 mg/dl (74-100); Phosphorous 2.5 mg/dl (2.5-4.5); Sodium 142 mmol/L (136-145)
[2024-06-15 09:44] LABS: Anion Gap 10.8 mEq/L (5-15); Potassium 4.8 mmoL/L (3.5-5.1)
[2024-06-15 10:12] LABS: WBC,Urine Occasional #/hpf (0-3)
[2024-06-15 10:33] LABS: Creatinine,Urine Random 208 mg/dL (Not Estab.); Total Protein,Urine Random < 5.0 mg/dL (0.0-12.0)
== END 2024-06-15 23:59 | disposition home or self-care (01) ==
LOC: LAB 08:55
PROVIDERS: PCP Internal Medicine; Visit Provider Internal Medicine Nephrology
DX: N18.30 Chronic kidney disease, stage 3 unspecified (principal)
CPT/HCPCS: 36415; 80069; 81001; 82570; 84156; 85027

== ENCOUNTER 2024-07-01 13:45 | Outpatient (CLI) | payer MEDICARE, OTHER, SELFPAY ==
[2024-07-01 14:09] LABS: Alanine Aminotransferase 28 U/L (12-78); Albumin Level 4.3 g/dl (3.5-5.0); Alkaline Phosphatase 76 U/L (38-126); Anion Gap 14.1 mEq/L (5-15); Aspartate Amino Transferase 35 U/L (17-59); Bilirubin,Total 0.3 mg/dl (0.2-1.3); Blood Urea Nitrogen 24 mg/dl (9-20); Calcium 9.6 mg/dl (8.4-10.2); Carbon Dioxide 26 mmol/L (22.0-30.0); Chloride 106 mmol/L (98-107); Chol/HDL Ratio 7.4 (1-3.5); Cholesterol 177 mg/dl (140-200); Estimated Glomerular Filt Rate 57 ml/min (>60); GFR (African American) 69 ML/MIN (>60); Globulin 2.1 g/dL (1.3-3.2); Glucose 67 mg/dl (74-100); HDL Cholesterol 24 mg/dl (40-60); Potassium 4.1 mmoL/L (3.5-5.1); Sodium 142 mmol/L (136-145); Total Protein,Serum 6.4 g/dl (6.3-8.2); Triglycerides 199 mg/dl (30-150); Uric Acid 7.8 mg/dl (3.5-8.5); VLDL Cholesterol 40 mg/dL (0-40)
[2024-07-01 14:19] LABS: Direct LDL Cholesterol 131.38 mg/dL (100-129)
== END 2024-07-01 23:59 | disposition home or self-care (01) ==
LOC: LAB.DROPOF 13:46
PROVIDERS: PCP Internal Medicine; Visit Provider Internal Medicine
DX: N18.9 Chronic kidney disease, unspecified (principal); I10 Essential (primary) hypertension; E78.5 Hyperlipidemia, unspecified; M10.9 Gout, unspecified
CPT/HCPCS: 80053; 80061; 84550

== ENCOUNTER 2024-12-21 13:40 | Outpatient (CLI) | payer MEDICARE, OTHER, SELFPAY ==
--- NOTE | 2024-12-21 13:43 | XR_ITS ---
FINAL REPORT CLINICAL HISTORY: Left neck pain and stiffness COMPARISON: none FINDINGS: Five views of the cervical spine were obtained. There is no fracture present. There is no malalignment. There is mild diffuse degenerative disc disease. Mild bony neural foraminal narrowing is noted at C3-4 and C4-5. IMPRESSION: Degenerative changes without acute process. Reviewed, Interpreted and Dictated by Susan Marte MD Transcribed by Itzel Perez Authenticated and [facility]
--- OUTSIDE RECORDS SUMMARY | 2024-12-21 13:44 | XMS_ITS | Clinical Summary ---
Author Organization Healthcare Address [address] [place], [place] [id number] Care Team Providers Care Permaculture Designer Name Role Phone Robert Resendiz MD Primary Care Provider [phone] Allergies Active Allergy Reactions Criticality Noted Date Comments Amoxicillin Vomiting 04/11/2022 Budesonide Itching Medium 04/11/2022 Codeine Vomiting 04/11/2022 Fluticasone Hives Medium 04/11/2022 Formoterol Itching Medium 04/11/2022 Hydrocodone Nausea 04/11/2022 Influenza Vaccines Shortness of breath High 04/11/20 22 Morphine Vomiting 04/11/2022 Salmeterol Hives Medium 04/11/2022 Medications albuterol 108 (90 Base) MCG/ACT inhaler 3 Active allopurinol (Zyloprim) 100 MG tablet 3 Active amLODIPine (Norvasc) 5 MG tablet 3 Active azelastine (Optivar) 0.05 % ophthalmic solution INSTILL ONE DROP into affected eye(s) TWICE DAILY NEEDED 3 Active benzonatate (Tessalon) 200 MG capsule 3 Active cetirizine (ZyrTEC) 10 MG tablet 3 Active colchicine 0.6 MG tablet 3 Active dexlansoprazole (Dexilant) [address] capsule 3 Active dextromethorphan ER (Delsym) 30 MG/5ML liquid 3 Active diclofenac (Voltaren) 1 % topical gel 3 Active EPINEPHrine (Epipen) 0.3 MG/0.3ML injection syringe 3 Active erythromycin (Romycin) 5 MG/GM ophthalmic ointment 3 Active escitalopram (Lexapro) 20 MG tablet 3 Active famotidine (Pepcid) 20 MG tablet 3 Active fenofibrate (Tricor) 145 MG tablet 3 Active fluticasone (Flonase) 50 MCG/ACT nasal spray INSTILL 2 SPRAYS IN EACH NOSTRIL TWICE DAILY 3 Active Trelegy Ellipta 100-62.5-25 MCG/ACT aerosol powder 3 Active hydrocortisone (Anusol-HC) 2.5 % rectal cream 3 Active levocetirizine (Xyzal) 5 MG tablet 3 Active Loratadine-D 24HR 10-240 MG 24 hr tablet 3 Active Multiple Vitamins-Mineral s (One Daily Mens Health) tablet 3 Active nystatin (Mycostatin) cream APPLY TOPICALLY TO THE AFFECTED AREA(S) THREE TIMES DAILY 3 Active ondansetron (Zofran) 4 MG tablet 3 Active trimethoprim-rick ymyxin b (Polytrim) ophthalmic solution 3 Active predniSONE (Deltasone) 10 MG tablet 3 Active terbinafine (LamISIL) 250 MG tablet 2 Active triamcinolone (Kenalog) 0.1 % cream 3 Active lisinopril-hydro CHLOROthiazide 10-12.5 MG tabletIndication s:CKD stage 3a, GFR 45-59 ml/min (CMS/HCC),Hypert ensive chronic kidney disease with stage 1 through stage 4 chronic kidney disease, or unspecified chronic kidney disease Take 1 tablet by mouth 1 (one) time each day. 90 tablet 3 5 Active Active Problems Problem Noted Date Diagnosed Date Hypertensive chronic kidney disease with stage 1 through stage 4 chronic kidney disease, or unspecified chronic kidney disease 06/19/2024 Chronic kidney disease-mineral and bone disorder (CKD-MBD) 06/19/2024 Type 2 diabetes mellitus wit h diabetic chronic kidney disease 06/19/2024 Other hyperlipidemia 06/19/2024 Anemia in stage 3a chronic kidney disease 2022 Essential hypertension 04/04/2023 Asthma 04/04/2023 Immunizations Immunization Administration Dates Next Due Influenza, seasonal, injectable 03/10/2010,03/21,03/08/2008,03/03/2007 Pneumococcal 20-jane Conj Vaccine 02/19/2023 Tetanus toxoid, adsorbed 10/04/2006 Zoster, Recombinant 05/06/2023,02/19/2023 Social History Tobacco Use Types Packs/Day Years Used Date Smoking Tobacco: Former Cigarettes Q uit: 03/06/1988 Tobacco Cessation:Counseling Given: Not Answered Alcohol Use Standard Drinks/Week Comments Never 0 (1 standard drink = 0.6 oz pur e alcohol) PHQ-2 Answer Date Recorded Patient Health Questionnaire-2 Score 0 10/14/2023 Sex and Gender Information Value Date Recorded Sex Assigned at Not on file Legal Sex Male 7:39 PM EDT Gender Identity Not on file Sexual Orientation Not on file Last Filed Vital Signs Vital Sign Reading Time Taken Comments Blood Pressure 122/69 06/19/2024 11:27 AM EST Pulse 71 06/19/2024 11:27 AM EST Temperature 36.7 C (98.1 F) 06/19/2024 11:27 AM EST Respiratory Rate 18 06/19/2024 11:27 AM EST Oxygen Saturation 98% 06/19/2024 11:27 AM EST Inhaled Oxygen Concentration - - Weight 99.8 kg (220 lb) 06/19/2024 11:27 AM EST Height 177.8 cm (5' 10 ) 06/19/2024 11:27 AM EST Body Mass Index 31.57 06/19/2024 11:27 AM EST Plan of Treatment Upcoming Encounters Date Type Department Care Team (Late st Contact Info) Description 01/15/2025 1:00 PM EDT Office Visit [facility] [address] [place] [address] Reuben Mayfield MD [address] [place] [phone] Health Maintenance Due Date Last Done Comments [facility]-Diabetes: Hemoglobin A1C 1969 [facility]-HIV Screening 1969 [facility]-Hepatitis C Screening 1969 [facility]-Medicare Annual Wellness (AWV) 1969 [facility]-/Child/Adol SDOH Screenings 1969 [id number] Vaccine (#1) 1974 Diabetes: Dental Exam 1979 [facility]Y- SDOH Screenings 1987 [facility]Y-Adult SDOH Screenings 1987 [facility]-DTaP,Tdap,and Td Vaccines (1 - Tdap) 01/22/1988 [facility]-Hepatitis B Vaccines (1 of 3 - 19+ 3-dose series) 01/22/1988 CT Colonography 2014 Colonoscopy 2014 FIT-DNA 2014 FIT 2014 FOBT 2014 Sigmoidoscopy 2014 [facility]-Colorectal Cancer Screening 2014 [facility]-Depression Screening 10/13/2024 10/14/2023 [facility]-Influenza Vaccine (#1) 02/01/202503/09, 03/10/2010, 03/21/2009, Additional history exists [facility]-Pneumococcal Vaccine: 50+ Years Completed 02/19/2023 [facility]-Zoster Vaccines Completed 05/06/2023, [facility]-Obesity Intervention Completed 025, 10/14/2023, 04/04/2023 HPV Vaccines Aged Out No longer eligi ble based on patient's age to complete this topic [facility]Y-HIB Vaccines Aged Out No longer e ligible based on patient's age to complete this topic [facility]-Hepatitis A Vaccines Aged Out No longer eligible based on patient's age to complete this topic UKY-IPV Vaccines Aged Out No longer e ligible based on patient's age to complete this topic UKY-Rotavirus Vaccines Aged Out No lo nger eligible based on [place] [id number] [employer] MEDICAID [facility] MEDICARE Care Teams Permaculture Designer Relationship Specialty Start Date End Date Robert Resendiz MD [address] [place] [address] [place] [address] PCP - General 10/14/20
== END 2024-12-21 23:59 | disposition home or self-care (01) ==
PROVIDERS: PCP Internal Medicine; Visit Provider Internal Medicine
DX: M47.812 Spondylosis without myelopathy or radiculopathy, cervical region (principal)
CPT/HCPCS: 72050

== ENCOUNTER 2024-12-29 08:45 | Outpatient (CLI) | payer MEDICARE, OTHER, SELFPAY ==
[2024-12-29 14:54] LABS: Hematocrit 40.6 % (42.0-52.0); Hemoglobin 13.4 g/dL (14.1-18.0); Mean Corpuscular HGB Conc 33.0 g/dL (31.8-35.4); Mean Corpuscular Hemoglobin 31.2 pg (27.0-31.2); Mean Corpuscular Volume 94.6 fl (80-94); Platelet Count 182 K/mm3 (142-424); Red Blood Count 4.29 M/mm3 (4.60-6.20); Red Cell Distribution Width-SD 51.3 fL; White Blood Count 7.2 K/mm3 (4.8-10.8)
[2024-12-29 14:55] LABS: Immature Granulocytes % 1.5 %; Nucleated Red Blood Cells % 0 %
[2024-12-29 15:44] LABS: Alanine Aminotransferase 30 U/L (12-78); Albumin Level 4.3 g/dl (3.5-5.0); Albumin/Globulin Ratio 2.2 (1.1-1.8); Alkaline Phosphatase 76 U/L (38-126); Anion Gap 11.3 mEq/L (5-15); Aspartate Amino Transferase 34 U/L (17-59); Bilirubin,Total 0.3 mg/dl (0.2-1.3); Blood Urea Nitrogen 30 mg/dl (9-20); Calcium 9.8 mg/dl (8.4-10.2); Carbon Dioxide 28 mmol/L (22.0-30.0); Chloride 106 mmol/L (98-107); Cholesterol 188 mg/dl (140-200); Creatinine,Serum 1.60 mg/dl (0.66-1.25); Estimated Glomerular Filt Rate 45 ml/min (>60); GFR (African American) 55 ML/MIN (>60); Globulin 2.0 g/dL (1.3-3.2); Glucose 63 mg/dl (74-100); HDL Cholesterol 29 mg/dl (40-60); Potassium 5.3 mmoL/L (3.5-5.1); Sodium 140 mmol/L (136-145); Total Protein,Serum 6.3 g/dl (6.3-8.2); Triglycerides 291 mg/dl (30-150); Uric Acid 5.6 mg/dl (3.5-8.5)
--- OUTSIDE RECORDS SUMMARY | 2024-12-30 12:31 | XMS_ITS | Clinical Summary ---
Author Organization Healthcare Address [address] [place], [place] [address] Care Team Providers Care Orderly Name Role Phone Robert Resendiz MD Primary Care Provider [phone] Allergies Active Allergy Reactions Criticality Noted Date [...] Description 01/15/2025 1:00 PM EDT Office Visit [facility] [address] [place] [address] Reuben Mayfield MD [address] [place] [phone] Health Maintenance Due Date Last Done Comments [facility]-Diabetes: Hemoglobin A1C 1969 [facility]-HIV Screening 1969 [facility]-Hepatitis C Screening 1969 [facility]-Medicare Annual Wellness (AWV) 1969 [facility]-/Child/Adol SDOH Screenings 1969 [id number] Vaccine (#1) 1974 Diabetes: Dental Exam 1979 [...] age [place] [address] [employer] MEDICAID [facility] MEDICARE Care Teams Orderly Relationship Specialty Start Date End Date Robert Resendiz MD [address] [place] [address] [place] [address] PCP - General 10/14/20
== END 2024-12-29 23:59 | disposition home or self-care (01) ==
LOC: LAB.DROPOF 12-30 12:29
PROVIDERS: PCP Internal Medicine; Visit Provider Internal Medicine
DX: I12.9 Hypertensive chronic kidney disease with stage 1 through stage 4 chronic kidney disease, or unspecified chronic kidney disease (principal); N18.9 Chronic kidney disease, unspecified; E78.5 Hyperlipidemia, unspecified; Z12.5 Encounter for screening for malignant neoplasm of prostate; M10.9 Gout, unspecified
CPT/HCPCS: 80053; 80061; 84550; 85025; G0103

== ENCOUNTER 2025-01-14 07:37 | Outpatient (CLI) | payer MEDICARE, OTHER, SELFPAY ==
--- OUTSIDE RECORDS SUMMARY | 2025-01-14 07:40 | XMS_ITS | Clinical Summary ---
Author Organization Healthcare Address [address] [place], [place] [id number] Care Team Providers Care Deaf Teacher Name Role Phone Robert Resendiz MD Primary Care Provider [phone] Allergies Active Allergy Reactions Criticality Noted Date [...] Administration Dates Next Due Influenza, seasonal, injectable 03/10/20 10,03/21/2009,03/08/2008,2006 Influenza, seasonal, injecta ble, preservative free 03/09/2024 Pneumococcal 20-jane Conj Vaccine 02/19/2023 Tetanus toxoid, [...] Description 01/15/2025 1:00 PM EDT Office Visit [facility] [address] [place] [phone] Reuben Mayfield MD [address] [place] [phone] Health Maintenance Due Date Last Done Comments [facility]Y-Diabetes: Hemoglobin A1C 1969 [facility]-HIV Screening 1969 [facility]-Hepatitis C Screening 1969 [facility]-Medicare Annual Wellness (AWV) 1969 [facility]-Infant/Child/Adol SDOH Screenings 1969 [id number] Vaccine (#1) 1974 Diabetes: Dental Exam 1979 [...] patient's age to complete this topic Insurance AETNA [facility] MEDICAID [facility] MEDICARE Care Teams Deaf Teacher Relationship Specialty Start Date End Date Robert Resendiz MD [address] [place] [address] [place] [address] PCP - General 10/14/20
[2025-01-14 07:41] LABS: Microscopic, Urine URINE MICROSCOPIC (MICROSCOPIC)
[2025-01-14 08:06] LABS: Hematocrit 41.2 % (42.0-52.0); Hemoglobin 13.9 g/dL (14.1-18.0); Mean Corpuscular HGB Conc 33.7 g/dL (31.8-35.4); Mean Corpuscular Hemoglobin 31.1 pg (27.0-31.2); Mean Corpuscular Volume 92.2 fl (80-94); Nucleated Red Blood Cells % 0 %; Platelet Count 209 K/mm3 (142-424); Red Blood Count 4.47 M/mm3 (4.60-6.20); Red Cell Distribution Width-SD 47.4 fL; White Blood Count 6.1 K/mm3 (4.8-10.8)
[2025-01-14 08:09] LABS: Bilirubin,Urine Negative (Negative); Color,Urine YELLOW (Yellow); Glucose,Urine (UA) Negative (Negative); Ketones,Urine Negative (Negative); Leukocyte Esterase,Urine Negative (Negative); PH,Urine 7.0 (5.0-8.5); Protein,Urine Negative (Negative); Specific Gravity, Urine 1.020 (1.005-1.030); Urobilinogen,Urine 1.0 EU/dl (0.2)
[2025-01-14 08:32] LABS: Bacteria,Urine Trace /lpf; Squamous Epithelial Cell,Urine Occasional #/hpf (0-5); WBC,Urine Occasional #/hpf (0-3)
[2025-01-14 08:35] LABS: Chloride 103 mmol/L (98-107); Sodium 140 mmol/L (136-145)
[2025-01-14 08:36] LABS: Albumin Level 4.6 g/dl (3.5-5.0); Potassium 4.5 mmoL/L (3.5-5.1)
[2025-01-14 08:38] LABS: Anion Gap 13.5 mEq/L (5-15); Blood Urea Nitrogen 30 mg/dl (9-20); Carbon Dioxide 28 mmol/L (22.0-30.0); Creatinine,Serum 1.30 mg/dl (0.66-1.25); Estimated Glomerular Filt Rate 57 ml/min (>60); GFR (African American) 69 ML/MIN (>60)
[2025-01-14 08:39] LABS: Calcium 9.7 mg/dl (8.4-10.2); Glucose 92 mg/dl (74-100); Phosphorous 2.7 mg/dl (2.5-4.5)
== END 2025-01-14 23:59 | disposition home or self-care (01) ==
LOC: LAB 07:38
PROVIDERS: PCP Internal Medicine; Visit Provider Student in an Organized Health Care Education/Training Program
DX: I12.9 Hypertensive chronic kidney disease with stage 1 through stage 4 chronic kidney disease, or unspecified chronic kidney disease (principal); N18.31 Chronic kidney disease, stage 3a
CPT/HCPCS: 36415; 80069; 81001; 82570; 84156; 85027

== ENCOUNTER 2025-04-13 10:01 | Outpatient (CLI) | payer MEDICARE, OTHER, SELFPAY ==
--- OUTSIDE RECORDS SUMMARY | 2025-04-13 10:07 | XMS_ITS | Clinical Summary ---
Author Organization Healthcare Address [address] [place], [place] [phone] Care Team Providers Care Fashion Stylist Name Role Phone Robert Resendiz MD Primary Care Provider [phone] Allergies Active Allergy Reactions Criticality Noted Date [...] Active Problems Problem Noted Date Diagnosed Date Hyperkalemia 01/15/2025 Hypertensive chronic kidney disease with stage 1 through stage 4 chronic kidney disease, or unspecified chronic kidney disease 06/19/2024 Chronic kidney disease-mineral and bone disorder (CKD-MBD) 06/19/2024 Type 2 diabetes mellitus wit h diabetic chronic kidney disease 06/19/2024 Other hyperlipidemia 06/19/2024 CKD stage 3a, GFR 45-59 ml/min 04/04/2023 Essential hypertension 04/04/2023 Asthma 04/04/2023 Encounters Date Type Department Care Team Description 01/15/2025 1:00 PM EDT Office Visit [facility] [address] [place] [address] Reuben Mayfield MD CKD stage 3a, GFR 45-59 ml/min (CMS/HCC) (Primary Dx); Hypertensive chronic kidney disease with stage 1 through stage 4 chronic kidney disease, or unspecified chronic kidney disease; Chronic kidney disease-mineral and bone disorder (CKD-MBD); Anemia in stage 3a chronic kidney disease; Other hyperlipidemia; Hyperkalemia 01/15/2025 Travel from Last 3 Months Immunizations Immunization Administration Dates Next Due Influenza, seasonal, injectable 03/10/20,03/21/2009,03/08/2008,2006 Influenza, seasonal, injecta ble, preservative free 03/09/2024 [...] Sign Reading Time Taken Comments Blood Pressure 116/61 01/15/2025 1:06 PM EDT Pulse 68 01/15/2025 1:06 PM EDT Temperature 36.7 C (98.1 F) 06/19/2024 11:27 AM EST Respiratory Rate 18 01/15/2025 1:06 PM EDT Oxygen Saturation 97% 01/15/2025 1:06 PM EDT Inhaled Oxygen Concentration - - Weight 101 kg (223 lb) 01/15/2025 1:06 PM EDT Height 177.8 cm (5' 10 ) 01/15/2025 1:06 PM EDT Body Mass Index 32 01/15/2025 1:06 PM EDT Plan of Treatment Upcoming Encounters Date Type Department Care Team (Late st Contact Info) Description 07/23/2025 10:40 AM EST Office Visit [facility] [address] [place] [address] Reuben Mayfield MD [address] [place] [phone] Health Maintenance Due Date Last Done Comments [facility]Y-Diabetes: Hemoglobin A1C 1969 [facility]Y-HIV Screening 1969 [facility]-Hepatitis C Screening 1969 [facility]-Medicare Annual Wellness (AWV) 1969 [facility]-/Child/Adol SDOH Screenings 1969 [id number] Vaccine (#1) 1974 Diabetes: Dental Exam 1979 [...] Vaccines Completed 05/06/2023, [facility]-Obesity Intervention Completed 025, 06/19/2024, 10/14/2023, Additional history exists HPV Vaccines Aged Out No longer eligi [...] age to complete this topic Insurance AETNA [facility] MEDICAID [facility] MEDICARE Care Teams Fashion Stylist Relationship Specialty Start Date End Date Robert Resendiz MD [address] [place] [address] PCP - General 10/14/20
[2025-04-13 10:44] LABS: Alanine Aminotransferase 45 U/L (12-78); Albumin Level 4.5 g/dl (3.5-5.0); Alkaline Phosphatase 80 U/L (38-126); Amylase 47 U/L (30-110); Aspartate Amino Transferase 45 U/L (17-59); Bilirubin,Direct 0.2 mg/dl (0.0-0.4); Bilirubin,Indirect 0.4 mg/dL (0.0-0.9); Bilirubin,Total 0.6 mg/dl (0.2-1.3); Bilirubin,Unconjugated 0.4 mg/dL (0.0-1.1); Iron 97 ug/dL (49-181); Lipase 52 U/L (23-300); Total Protein,Serum 7.1 g/dl (6.3-8.2)
[2025-04-13 10:54] LABS: Total Iron Binding Capacity 383 ug/dL (261-462)
[2025-04-13 11:19] LABS: Ferritin 60.1 ng/ml (17.9-464)
== END 2025-04-13 23:59 | disposition home or self-care (01) ==
LOC: LAB 10:02
PROVIDERS: PCP Internal Medicine; Visit Provider Internal Medicine Gastroenterology
DX: D64.9 Anemia, unspecified (principal); R10.13 Epigastric pain; R14.0 Abdominal distension (gaseous); R14.2 Eructation
CPT/HCPCS: 36415; 80076; 82150; 82728; 83540; 83550; 83690

== ENCOUNTER 2025-04-14 15:32 | Outpatient (CLI) | payer MEDICARE, OTHER, SELFPAY ==
--- OUTSIDE RECORDS SUMMARY | 2025-04-14 15:35 | XMS_ITS | Clinical Summary ---
Author Organization Healthcare Address [address] [place], [place] [address] Care Team Providers Care Business Technology Architect Name Role Phone Robert Resendiz MD Primary Care Provider [phone] Allergies Active Allergy Reactions Criticality Noted Date [...] 01/15/2025 1:00 PM EDT Office Visit [facility] [address] [place] [address] [...] Description 07/23/2025 10:40 AM EST Office Visit [facility] [address] [place] [address] Reuben Mayfield MD [address] [place] [phone] Health Maintenance Due Date Last Done Comments [facility]Y-Diabetes: Hemoglobin A1C 1969 [facility]Y-HIV Screening 1969 [facility]-Hepatitis C Screening 1969 [facility]-Medicare Annual Wellness (AWV) 1969 [facility]-/Child/Adol SDOH Screenings 1969 [id number] Vaccine (#1) 1974 Diabetes: Dental Exam 1979 [...] age to complete this topic Insurance AETNA [facility] MEDICAID [facility] MEDICARE Care Teams Business Technology Architect Relationship Specialty Start Date End Date Robert Resendiz MD [address] [place] [address] PCP - General 10/14/20
[2025-04-16 23:09] LABS: Pancreatic Elastase, Fecal >800 (>200)
== END 2025-04-14 23:59 | disposition home or self-care (01) ==
LOC: LAB 15:33
PROVIDERS: PCP Internal Medicine; Visit Provider Internal Medicine Gastroenterology
DX: R10.13 Epigastric pain (principal); R14.0 Abdominal distension (gaseous); R14.2 Eructation
CPT/HCPCS: 82653

== ENCOUNTER 2025-04-21 09:49 | Outpatient (CLI) | payer MEDICARE, OTHER, SELFPAY ==
--- NOTE | 2025-04-21 09:52 | XR_ITS ---
FINAL REPORT CLINICAL HISTORY: left knee pain FINDINGS: AP, lateral and oblique views of the left knee were obtained. There is no prior exam for comparison. There is no acute osseous abnormality of the left knee. Tricompartmental degenerative disease is most pronounced of the medial compartment. The soft tissues are normal. There is a moderate joint effusion. IMPRESSION: Degenerative changes and moderate joint effusion. Consider MRI. Reviewed, Interpreted and Dictated by Tonia Mercer MD Transcribed by Itzel Perez Authenticated and [facility]
--- NOTE | 2025-04-21 10:55 | XR_ITS ---
FINAL REPORT CLINICAL HISTORY: left hip pain FINDINGS: AP and frog leg views of the left hip were obtained. There is no prior exam for comparison. There is no acute fracture or dislocation. There is mild degenerative joint disease. Soft tissues are unremarkable. IMPRESSION: Mild degenerative change without acute osseous abnormality of the left hip. Reviewed, Interpreted and Dictated by Tonia Mercer MD Transcribed by Itzel Perez Authenticated and [facility]
--- NOTE | 2025-04-21 10:55 | XR_ITS ---
FINAL REPORT CLINICAL HISTORY: right hip pain FINDINGS: An AP view of the pelvis and a frog leg view of the right hip were obtained. There is no prior exam for comparison. There is no acute fracture or dislocation. There is mild degenerative joint disease. Remaining osseous pelvis is without acute abnormality. Soft tissues are unremarkable. IMPRESSION: Mild degenerative change without acute osseous abnormality of the right hip. Reviewed, Interpreted and Dictated by Tonia Mercer MD Transcribed by Itzel Perez Authenticated and [facility]
== END 2025-04-21 23:59 | disposition home or self-care (01) ==
LOC: RAD 09:50
PROVIDERS: PCP Internal Medicine; Visit Provider Physician Assistant Surgical
DX: M16.11 Unilateral primary osteoarthritis, right hip (principal); M16.12 Unilateral primary osteoarthritis, left hip; M17.12 Unilateral primary osteoarthritis, left knee
CPT/HCPCS: 73502; 73562